=== PATIENT | female | born 1935 | race Caucasian/White ===

== ENCOUNTER → 2016-06-12 | Outpatient (CLI) | payer OTHER ==
[~2016-06-12] MED LIST: ADULT LOW DOSE81 MG PO; CARVEDILOL25 MG PO; FLORASTOR250 MG PO; GLUCOPHAGE 500500 MG PO; HYDROCHLOROTHIA25 MG PO; IBUPROFEN800 MG PO; LEVBID0.375 MG PO; LEVOTHYROXINE50 MCG PO; LISINOPRIL10 MG PO; LISINOPRIL20 MG PO; TYLENOL 325MG325 MG PO; ZOCOR20 MG PO
[2016-06-12 14:18] LABS: BUN/CREATININE RATIO 28 (0-10)
== END ==
LOC: LAB 13:27
PROVIDERS: Family Medicine
DX: E87.5 Hyperkalemia (principal); Z88.5 Allergy status to narcotic agent
CPT/HCPCS: 36415; 80048